=== PATIENT | male | born 2000 | race Two or more races ===

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

== ENCOUNTER 2022-07-05 14:32 | Emergency (ER) | payer OTHER ==
[2022-07-05 14:51] VITALS: RESP 17; BMI 22.8
[2022-07-05] MEDS ORDERED: ONDANSETRON 4 MG/2 ML VIAL IVPUSH ONE (15:49)
[2022-07-05] MEDS ORDERED: SODIUM CHLORIDE 0.9% 1000 ML INFUS.BAG IV ONE (15:49)
[2022-07-05] MEDS ORDERED: ACETAMINOPHEN 1000 MG/100 ML BAG IVPB ONE (15:49)
[2022-07-05] MEDS ORDERED: ONDANSETRON 4 MG/2 ML VIAL ONE (15:58)
[2022-07-05] MEDS ORDERED: ACETAMINOPHEN INJECTION 100 ML IVPB ONE (15:58)
[2022-07-05 16:40] LABS: BASO % 0.3 % (0-2.0); EOS % 0.1 % (0-4.5); HEMATOCRIT 47.1 % (35.4-49); HEMOGLOBIN 15.8 GM/dL (11.7-16.9); LYMPH % 6.7 % (8-40); MCH 30.1 pg (25.7-33.7); MCHC 33.6 g/dl (32.0-35.9); MEAN CELL VOLUME 89.7 fl (80-96); MEAN PLT VOLUME 8.7 fl (7.5-11.1); MONO % 6.8 % (3.8-10.2); NEUT % 86.1 % (42.8-82.8); PLATELET COUNT 243 10^3/uL (134-434); RBC 5.25 M/mm3 (4.00-5.60); RDW 13.5 % (11.9-15.9); WHITE BLOOD COUNT 11.6 K/mm3 (4.0-10.0)
[2022-07-05 17:07] LABS: ALBUMIN 4.4 g/dl (3.4-5.0); BLOOD UREA NITROGEN 9.6 mg/dL (7-18); CALCIUM 9.9 mg/dL (8.5-10.1)
[2022-07-05 17:11] LABS: CREATININE 0.9 mg/dL (0.55-1.3)
[2022-07-05 17:13] LABS: BILIRUBIN,TOTAL 1.1 mg/dL (0.2-1); TOT PROT 8.7 g/dl (6.4-8.2)
[2022-07-05] MEDS ORDERED: DEXAMETHASONE LIQUID 0.5 MG/5 ML PO ONE (18:14)
[2022-07-05 18:27] VITALS: BP 113/59; PULSE 65; TEMP 98.6
[2022-07-05] MEDS ORDERED: MAG HYDROX/AL HYDROX/SIMETH 30 ML UNIT-DOSE CUP PO ONE (18:43)
[2022-07-05] MEDS ORDERED: LIDOCAINE VISCOUS 2% ORAL/TOP 15 ML UNIT-DOSE CUP MM ONE (18:43)
[2022-07-05] MEDS ORDERED: DEXAMETHASONE SOD PHOSPHATE 10 MG/1 ML VIAL ONE (18:52)
[2022-07-05] MEDS ORDERED: MAG HYDROX/AL HYDROX/SIMETH 30 ML UNIT-DOSE CUP ONE (18:52)
[2022-07-05] MEDS ORDERED: LIDOCAINE VISCOUS 2% ORAL/TOP 15 ML UNIT-DOSE CUP ONE (18:52)
== END 2022-07-05 19:22 | disposition home or self-care (01) ==
LOC: JER 14:32
PROC: 3E0333Z Introduction of Anti-inflammatory into Peripheral Vein, Percutaneous Approach (ICD-10-PCS; principal; 2022-07-05)
PROC: 3E033GC Introduction of Other Therapeutic Substance into Peripheral Vein, Percutaneous Approach (ICD-10-PCS; 2022-07-05)
DX: J03.90 Acute tonsillitis, unspecified (principal)
CPT/HCPCS: 0241U-QW; 36415; 80053; 85025; 87651; 99284-25

== ENCOUNTER 2022-09-11 19:10 | Emergency (ER) | payer OTHER ==
[2022-09-11 19:38] VITALS: BP 126/60; PULSE 75; RESP 20; TEMP 98.4; BMI 23.5
[2022-09-11] MEDS ORDERED: KETOROLAC TROMETHAMINE 30 MG/1 ML VIAL IM ONE (20:28)
[2022-09-11] MEDS ORDERED: METHOCARBAMOL 500 MG TABLET ONE (20:47)
[2022-09-11] MEDS ORDERED: KETOROLAC TROMETHAMINE 30 MG/1 ML VIAL ONE (20:47)
[2022-09-11] MEDS ORDERED: METHOCARBAMOL 500 MG TABLET PO SCH (22:00)
== END 2022-09-11 21:22 | disposition home or self-care (01) ==
LOC: JER 19:10 → JERFT 19:10
PROC: 3E0233Z Introduction of Anti-inflammatory into Muscle, Percutaneous Approach (ICD-10-PCS; principal; 2022-09-11)
DX: M25.561 Pain in right knee (principal); M54.2 Cervicalgia; V43.52XA Car driver injured in collision with other type car in traffic accident, initial encounter
CPT/HCPCS: 99284-25

== ENCOUNTER 2023-03-15 19:46 | Emergency (ER) | payer OTHER ==
[2023-03-15 19:53] VITALS: BP 118/69; PULSE 54; RESP 18; TEMP 98.3; BMI 22.6
[2023-03-15 21:57] LABS: BASO % 0.2 % (0-2.0); EOS % 0.6 % (0-4.5); HEMATOCRIT 49.9 % (35.4-49); HEMOGLOBIN 16.8 GM/dL (11.7-16.9); MCH 30.3 pg (25.7-33.7); MCHC 33.7 g/dl (32.0-35.9); MEAN CELL VOLUME 89.9 fl (80-96); MEAN PLT VOLUME 8.3 fl (7.5-11.1); MONO % 10.3 % (3.8-10.2); NEUT % 74.9 % (42.8-82.8); PLATELET COUNT 264 10^3/uL (134-434); RBC 5.54 M/mm3 (4.00-5.60); RDW 14.7 % (11.9-15.9); WHITE BLOOD COUNT 7.7 K/mm3 (4.0-10.0)
[2023-03-15 22:19] LABS: POTASSIUM 3.5 mmol/L (3.5-5.1)
[2023-03-15 22:21] LABS: CALCIUM 9.6 mg/dL (8.5-10.1)
[2023-03-15 22:22] LABS: ALBUMIN 4.3 g/dl (3.4-5.0); BLOOD UREA NITROGEN 6.9 mg/dL (7-18)
[2023-03-15 22:25] LABS: CREATININE 0.8 mg/dL (0.55-1.3)
[2023-03-15 22:26] LABS: BILIRUBIN,TOTAL 0.8 mg/dL (0.2-1); TOT PROT 7.9 g/dl (6.4-8.2)
[2023-03-16] MEDS ORDERED: CIPROFLOXACIN 500 MG TABLET (RESTRICTED TO ID) PO ONE (00:14)
[2023-03-16] MEDS ORDERED: KETOROLAC TROMETHAMINE 10 MG TABLET PO ONE ×2 (00:15→00:22)
== END 2023-03-16 00:40 | disposition home or self-care (01) ==
LOC: JER 19:46
DX: R10.32 Left lower quadrant pain (principal); R19.7 Diarrhea, unspecified; R50.9 Fever, unspecified; R11.2 Nausea with vomiting, unspecified; K52.9 Noninfective gastroenteritis and colitis, unspecified
CPT/HCPCS: 36415; 74176-TC; 80053; 85025; 99284-25; Q9967

== ENCOUNTER 2023-06-02 19:52 | Emergency (ER) | payer OTHER ==
[2023-06-02 20:01] VITALS: BP 139/65; PULSE 60; RESP 18; TEMP 98.2; BMI 25.9
[2023-06-02] MEDS ORDERED: IBUPROFEN 400 MG TABLET (FP) PO ONE ×2 (21:22→22:09)
== END 2023-06-02 22:20 | disposition home or self-care (01) ==
LOC: JER 19:52
DX: R07.89 Other chest pain (principal); R06.9 Unspecified abnormalities of breathing; M25.532 Pain in left wrist; R63.0 Anorexia; M62.838 Other muscle spasm
CPT/HCPCS: 71046-TC-FY; 93005; 93010; 99284-25